=== PATIENT | male | born 2000 | race African-American/Black ===

== ENCOUNTER 2021-03-12 13:16 | Emergency (ER) | payer OTHER ==
[~2021-03-12] VITALS: Ht 174 cm; Wt 85.7 kg
[2021-03-12 13:41] VITALS: BP 140/68
[2021-03-12] MEDS ORDERED: KETOROLAC 30 MG/ML VIAL IM ONE (13:45)
--- NOTE | 2021-03-12 13:49 | NUR ---
PT REFUSES MEDICATION AT THIS TIME. MEDICATION RETURNED BACK TO [facility].
[2021-03-12] MEDS ORDERED: NAPR-54 PO (14:20)
--- NOTE | 2021-03-12 14:30 | NUR ---
NO NURSING INTERVENTIONS PROVIDED.
[2021-03-12 14:32] VITALS: BP 140/68
--- NOTE | 2021-03-12 14:32 | NUR ---
Patient discharged with v/s stable. Written and verbal after care instructions given and explained ABOUT SHOULDER SPRAIN. Patient alert, oriented and verbalized understanding of instructions. Ambulatory with steady gait. All questions addressed prior to discharge. ID band removed. Patient advised to follow up with PMD. Rx of NAPROSYN given. Patient educated on indication of medication including possible reaction and side effects. Opportunity to ask questions provided and answered.
== END 2021-03-12 14:32 | disposition home or self-care (01) ==
LOC: MED 13:16
DX: S43.401A Unspecified sprain of right shoulder joint, initial encounter (principal); Z79.899 Other long term (current) drug therapy; V87.8XXA Person injured in other specified noncollision transport accidents involving motor vehicle (traffic), initial encounter; Y93.89 Activity, other specified; Y92.89 Other specified places as the place of occurrence of the external cause; Y99.8 Other external cause status
CPT/HCPCS: 73030; 99283; J1885

== ENCOUNTER 2021-09-29 13:10 | Emergency (ER) | payer OTHER ==
[~2021-09-29] VITALS: Ht 165.1 cm; Wt 70.3 kg
[~2021-09-29 13:10] MED LIST: NAPR-54 PO
[2021-09-29 13:25] VITALS: BP 124/80
--- NOTE | 2021-09-29 15:05 | NUR ---
ATTEMPTED TO CALL PT IN LOBBY/OUTSIDE ER LOBBY; NO ANSWER .
--- NOTE | 2021-09-29 15:16 | NUR ---
2nd attempt no answer in lobby/parking lot
--- NOTE | 2021-09-29 15:30 | NUR ---
LWSB; NO ANSWER IN LOBBY.
--- NOTE | 2021-09-29 15:30 | NUR ---
PATIENT LEFT WITHOUT BEING SEEN BY DR. COOPER. NO FURTHER CARE PROVIDED FOR PATIENT.
== END 2021-09-29 15:30 | disposition left against medical advice (07) ==
LOC: MED 13:10
DX: R51.9 Headache, unspecified (principal); H91.91 Unspecified hearing loss, right ear; Z53.21 Procedure and treatment not carried out due to patient leaving prior to being seen by health care provider

== ENCOUNTER 2023-05-01 17:10 | Emergency (ER) | payer OTHER ==
[~2023-05-01] VITALS: Ht 172.7 cm; Wt 81.6 kg
[2023-05-01 17:19] VITALS: BP 129/89; PULSE 88; RESP 18; TEMP 97.5; O2SAT 98
[2023-05-01] MEDS ORDERED: ONDANSETRON 4 MG ODT PO ONE (17:25)
[2023-05-01 18:09] LABS: BASOPHILS % (AUTO) 0.4 % (0.0-2.0); HEMOGLOBIN 15.7 g/dL (12.0-18.0); LYMPHOCYTES # (AUTO) 1.4 K/uL (2.0-11.5); LYMPHOCYTES % (AUTO) 11.6 % (20.5-51.1); MEAN CORPUSCULAR HEMOGLOBIN 31 pg (27-31); MEAN CORPUSCULAR HGB CONC 34 g/dL (33-37); MEAN CORPUSCULAR VOLUME 90.5 fL (80-94); MONOCYTES # (AUTO) 0.4 K/uL (0.8-1.0); MONOCYTES % (AUTO) 3.4 % (1.7-9.3); NEUTROPHILS # (AUTO) 10.4 K/uL (1.8-7.7); NEUTROPHILS % (AUTO) 84.6 % (42.2-75.2); PLATELET COUNT (AUTO) 296 K/uL (140-450); RED BLOOD CELL COUNT(AUTO) 5.08 MIL/uL (4.20-6.10); RED CELL DISTRIBUTION WIDTH 13.6 % (11.6-13.7); WHITE BLOOD COUNT (AUTO) 12.3 K/uL (4.8-10.8)
[2023-05-01 18:11] LABS: CALCIUM 9.5 mg/dL (8.5-10.1); CARBON DIOXIDE 29.1 mmol/L (21-32); POTASSIUM 4.1 mmol/L (3.5-5.1)
[2023-05-01 18:17] LABS: APPEARANCE,URINE CLEAR (CLEAR); BILIRUBIN,URINE NEGATIVE (NEGATIVE); BLOOD, URINE TRACE-I (NEGATIVE); COLOR,URINE YELLOW (YELLOW); LEUKOCYTE ESTERASE ,URINE NEGATIVE (NEGATIVE); NITRITE, URINE NEGATIVE (NEGATIVE); PROTEIN,URINE NEGATIVE (NEGATIVE); UGLUCOSE NEGATIVE (NEGATIVE); UROBILINOGEN,URINE 0.2 EU/dL (0.2 - 1)
[2023-05-01 18:37] LABS: ALBUMIN 3.8 g/dL (3.4-5.0); BILIRUBIN,DIRECT 0.1 mg/dL (0.0-0.3); TOTAL BILIRUBIN 0.4 mg/dL (0.0-1.0); TOTAL PROTEIN, SERUM 8.5 g/dL (6.4-8.2)
[2023-05-01] MEDS ORDERED: ONDA-188 PO (19:01)
[2023-05-01 19:56] VITALS: BP 129/89; PULSE 88; RESP 18; TEMP 97.5; O2SAT 98
== END 2023-05-01 19:56 | disposition home or self-care (01) ==
LOC: MED 17:10
DX: R10.13 Epigastric pain (principal); R10.33 Periumbilical pain; R19.7 Diarrhea, unspecified; R11.0 Nausea; R03.0 Elevated blood-pressure reading, without diagnosis of hypertension; Z20.822 Contact with and (suspected) exposure to COVID-19; Z79.899 Other long term (current) drug therapy; Z79.1 Long term (current) use of non-steroidal anti-inflammatories (NSAID)
CPT/HCPCS: 36415; 80048; 80076; 81003; 82150; 83690; 85025; 87426; 99283; Q0162